=== PATIENT | female | born 1950 | race Caucasian/White ===

== ENCOUNTER 2016-05-10 20:45 | Emergency (ER) | payer MEDICARE, OTHER ==
[2016-05-10 21:18] LABS: BASOPHIL 0.4 % (0-2); EOSINOPHIL 2.2 % (0-7); HCT 37.8 % (37.0-47.0); HGB 13.2 g/dl (12.5-16.0); LYMPHOCYTE 37.3 % (15-48); MCHC 34.9 g/dL (32.0-36.0); MCV 91.7 fL (78.0-100.0); MONOCYTE 10.9 % (0-12); MPV 9.2 fL (6.0-9.5); NEUTROPHIL 49.2 % (41-80); PLT 289 K/uL (150-400); RBC 4.12 M/uL (4.20-5.40); RDW 13.3 % (11.5-14.0); WBC 7.8 K/uL (4.0-10.5)
[2016-05-10 21:29] LABS: INR 0.99 (0.9-1.2); PROTHROMBIN TIME 12.7 SECONDS (11.7-14.0); PTT 24.8 SECONDS (23.2-31.4)
[2016-05-10 21:44] LABS: CKMB 1.68 ng/mL (0.97-4.94); MYOGLOBIN 59 ng/mL (26-65); PRO-BNP 26 pg/mL (0-125); TROPONIN T < 0.010 ng/mL
[2016-05-10 21:45] LABS: ALBUMIN 4.3 g/dL (3.4-4.8); BILIRUBIN - TOTAL 0.5 mg/dL (0.1-1.0); CREATININE 0.9 mg/dL (0.5-1.0); GLOBULIN (CALCULATION) 2.3 g/dL (2.2-4.2); MAGNESIUM 1.96 mg/dL (1.40-2.10); POTASSIUM 3.8 mmol/L (3.5-5.1); TOTAL PROTEIN 6.6 g/dL (6.4-8.3)
[2016-05-10 23:43] LABS: CKMB 1.57 ng/mL (0.97-4.94); TROPONIN T < 0.010 ng/mL
[2016-05-10 23:57] LABS: FT4 (FREE T4) 1.28 ng/dL (0.93-1.70); TSH (THYROID STIM HORMONE) 1.36 uIU/mL (0.270-4.200)
== END 2016-05-11 00:15 | disposition home or self-care (01) ==
LOC: FER 20:45
PROVIDERS: Emergency Medicine
DX: T73.3XXA Exhaustion due to excessive exertion, initial encounter (principal); E86.0 Dehydration; M54.2 Cervicalgia; E03.9 Hypothyroidism, unspecified; K21.9 Gastro-esophageal reflux disease without esophagitis
CPT/HCPCS: 36415; 71010; 80053; 82550; 82553; 83735; 83874; 83880; 84439; 84443; 84484; 85025; 85610; 85730; 93005

== ENCOUNTER 2021-02-27 11:42 | Emergency (ER) | payer MEDICARE | END 2021-02-27 15:30 | disposition home or self-care (01) | LOC: FER 11:42 | DX: U07.1 COVID-19 (principal); R07.89 Other chest pain; I10 Essential (primary) hypertension | CPT/HCPCS: 71046 ==